=== PATIENT | female | born 1970 | race Hispanic/Latino ===

== ENCOUNTER 2021-08-07 21:52 | Emergency (ER) | payer SELFPAY ==
--- NOTE | ~2021-08-07 | CT_ITS ---
EXAMINATION: CT brain wo con DATE: 08/08/2021 00:16 INDICATION: Headache. TECHNIQUE: Computed tomography (CT) of the head was performed without intravenous contrast. The mA wa s adjusted according to patient size. Iterative reconstruction technique was employed. The dose-lengt h product was 605.33 mGy-cm. COMPARISON: Head CT 05/12/2019 FINDINGS: There is no intracranial hemorrhage, acute infarction, or abnormal intracranial mass lesion . The ventricles are normal in size. The paranasal sinuses are clear. The orbits are normal. The mast oid air cells are normal. IMPRESSION: 1. Normal brain. Reviewed, dictated and finalized at location E. [facility] IMPRESSION: 1. Normal brain.
[2021-08-07 21:56] VITALS: BP 156/95; PULSE 73; RESP 18; TEMP 36.6; O2SAT 100
--- NOTE | 2021-08-07 23:41 | ED.HA ---
HPI - Headache General Chief Complaint: Headache Stated Complaint: headache Time Seen by Provider: 08/07/21 23:28 Source: patient Mode of arrival: ambulatory Limitations: no limitations History of Present Illness HPI Narrative: Patient is a 52-year-old female complaining of a headache, frontal, 8 out of 10, nonradiating, dull, started this morning. Patient states that she has a history of headaches and this is her typical headache. Patient denies any speech or visual disturbance, focal weakness or numbness, unsteady gait, dizziness, neck pain or stiffness, fever or chills. Related Data Home Medications Medication Instructions Recorded Confirmed lovastatin 20 mg PO DAILY 05/12/19 05/12/19 metformin 1,000 mg PO BID 05/12/19 05/12/19 paroxetine HCl [Paxil] 20 mg PO QAM 05/12/19 05/12/19 Allergies Allergy/AdvReac Type Severity Reaction Status Date / Time No Known Allergies Allergy Verified 08/08/21 00:40 Review of Systems Review of Systems: All systems reviewed & are unremarkable except as noted in HPI and below Constitutional: Constitutional: Denies body ache(s), Denies chills, Denies excessive sweating, Denies fatigue, Denies fever(s), Denies headache(s), Denies lethargy, Denies malaise, Denies weakness and Denies weight loss Eyes: Eyes: Denies blurry vision, Denies change in vision and Denies loss of vision ENT: Denies dizziness, Denies ear discharge, Denies headache(s), Denies lip swelling, Denies epistaxis, Denies nasal congestion, Denies neck pain, Denies throat swelling and Denies tongue swelling Cardiovascular: Cardiovascular: Denies chest pain, Denies chest pain at rest, Denies chest pain with activity, Denies diaphoresis, Denies rapid heart rate, Denies edema, Denies irregular heart rhythm, Denies lightheadedness, Denies palpitations, Denies dyspnea and Denies dyspnea on exertion Respiratory: Respiratory: Denies chest congestion, Denies cough, Denies hemoptysis, Denies dyspnea and Denies dyspnea on exertion Gastrointestinal: Gastrointestinal: Denies abdominal pain, Denies melena, Denies hematochezia, Denies diarrhea, Denies nausea, Denies vomiting and Denies hematemesis Musculoskeletal: Musculoskeletal: Denies abnormal gait, Denies deformity, Denies joint swelling, Denies limited range of motion, Denies neck pain and Denies numbness Neurologic: Denies Abnormal speech present, Denies abnormal gait, Denies confusion, Denies dizziness, Denies focal weakness, Denies loss of vision, Denies numbness, Denies Other visual disturbances, Denies Sensory deficit (Neuro) and Denies weakness Psychiatric: Psychiatric: Denies confusion, Denies depression, Denies auditory hallucinations, Denies homicidal ideation and Denies suicidal ideation Endocrine: Endocrine: Denies cold intolerance, Denies excessive sweating, Denies fatigue, Denies heat intolerance and Denies palpitations Hematologic/Lymphatic: Hematologic/Lymphatic: Denies easy bleeding and Denies easy bruising Allergic/Immunologic: Allergic/Immunologic: Denies lip swelling, Denies throat swelling and Denies tongue swelling PMFSH Past Medical History Medical History Depression Diabetes mellitus HLD (hyperlipidemia) Social History Social History Smoking status: Never smoker Exam Const: General: cooperative, healthy appearing, comfortable, no acute distress, well developed, alert and awake; No confusion Orientation/consciousness: oriented to person, oriented to place, oriented to time, patient oriented x3 and No confusion Limitations: no limitations HENMT: Head: normal to inspection, normocephalic and atraumatic Ears: hearing grossly normal bilaterally, TM normal on the right and TM normal on the left General nose exam: Normal external nose present, Normal nares present and No nasal discharge present Face and sinus: normal facial exam Mouth: Yes Normal
[2021-08-08] MEDS: SODIUM CHLORIDE 0.9% IV 1,000 ML 999 ML IV CONT (00:39)
[2021-08-08] MEDS: METOCLOPRAMIDE HCL INJ 10 MG/2 ML VIAL IV PUSH (00:39)
[2021-08-08] MEDS: KETOROLAC 30 MG/ML VIAL (*BKC) IV PUSH (00:39)
[2021-08-08] MEDS: diphenhydrAMINE HCl INJ 50 MG/ML VIAL 25 MG IV PUSH (00:40)
[2021-08-08 01:02] LABS: Glucose Point of Care 137 mg/dl (65-105)
[2021-08-08 02:03] VITALS: BP 142/88; PULSE 67; RESP 15; O2SAT 99
== END 2021-08-08 02:14 | disposition home or self-care (01) ==
PROVIDERS: Emergency Provider Emergency Medicine
DX: R51.9 Headache, unspecified (principal); F32.9 Major depressive disorder, single episode, unspecified; E11.9 Type 2 diabetes mellitus without complications; E78.5 Hyperlipidemia, unspecified; Z79.84 Long term (current) use of oral hypoglycemic drugs
CPT/HCPCS: 70450; 82948; 96361; 96374; 96375; 99284; J1200; J1885; J2765; J7030

== ENCOUNTER 2022-06-16 16:22 | Emergency (ER) | payer MEDICAID, SELFPAY ==
[2022-06-16 17:11] VITALS: BP 151/74; PULSE 68; RESP 18; TEMP 36.4; O2SAT 100
--- NOTE | 2022-06-16 17:27 | ED.SKABFB ---
HPI - Skin/Abscess/Foreign Bdy General Chief complaint: Skin/Abscess/Foreign Body Stated complaint: Left Arm Pain/ Insect Bite, Dizziness Time Seen by Provider: 06/16/22 17:27 Source: patient and family Mode of arrival: ambulatory Limitations: no limitations History of Present Illness HPI narrative: 52-year-old female presents with complaint of insect bite to right arm. Afebrile. Reports that she has felt fatigued and dizzy since waking up this morning. Thinks that she was bit by spider but did not see the bug. No other complaints today. All systems reviewed and negative except as noted above. Related Data Allergies Allergy/AdvReac Type Severity Reaction Status Date / Time No Known Allergies Allergy Verified 06/16/22 17:36 Review of Systems Review of Systems: CONSTITUTIONAL: Denies fever, chills, or sweats. EYES: Denies visual changes, redness, or discharge. ENT: Denies rhinorrhea, congestion, sore throat, or otalgia. CARDIOVASCULAR: Denies chest pain, palpitations, or edema. RESPIRATORY: Denies cough or dyspnea. GASTROINTESTINAL: Denies abdominal pain, nausea, vomiting, or diarrhea. GENITOURINARY: Denies dysuria or hematuria. SKIN: Denies rash or itching. Reports insect bite right arm. MUSCULOSKELETAL: Denies back pain, joint pain, or myalgia. NEUROLOGIC: Denies headache, numbness, or weakness. PSYCHIATRIC: Denies anxiety or depression. All other systems reviewed are negative, except as documented in HPI. [facility] Past Medical History Medical History Depression Diabetes mellitus HLD (hyperlipidemia) Social History Social History Smoking status: Never smoker Comments At time of signature, agree with nursing past medical, surgical, social and family history. There is no relevant family history pertinent to the presenting complaint. Exam Narrative: GENERAL: This is a well-nourished, well-developed patient, in no apparent distress. HEAD: normocephalic, atraumatic. EYES: PERRL. Sclera clear/white. Vision is grossly intact. EARS: External ears normal NOSE: External nose normal NECK: Neck supple, non-tender without lymphadenopathy, masses or thyromegaly. CARDIOVASCULAR: Regular rate and rhythm without murmurs, gallops, or rubs. RESPIRATORY: Clear to auscultation. Breath sounds equal bilaterally. No wheezes, rales, or rhonchi. SKIN: warm, Dry, intact with no suspicious lesions or rash, good texture and turgor. Two scabbed puncture wounds noted to distal aspect R upper arm. bruising surrounding punctures. no erythema or warmth. NEURO: awake, alert, and oriented to person, place and time. There were no obvious focal neurologic abnormalities. EXTREMITIES: No joint tenderness, effusion, or edema noted. Course Course Level of Care: Express Care Visit Vital Signs Vital signs: Vital Signs Temperature 36.4 C L 06/16/22 17:11 Pulse Rate 68 06/16/22 17:11 Respiratory Rate 18 06/16/22 17:11 Blood Pressure 151/74 H 06/16/22 17:11 Pulse Oximetry 100 06/16/22 17:11 Oxygen Delivery Room Air 06/16/22 17:11 Temperature 36.4 C L 06/16/22 17:11 Pulse Rate 68 06/16/22 17:11 Respiratory Rate 18 06/16/22 17:11 Blood Pressure 151/74 H 06/16/22 17:11 Pulse Oximetry 100 06/16/22 17:11 Oxygen Delivery Room Air 06/16/22 17:11 reviewed MDM - Skin/Abscess/Foreign Bdy MDM Narrative Medical decision making narrative: Patient is aware of diagnosis, understands and agrees to treatment plan. Anticipatory guidance given. Patient agrees to follow-up as directed and is aware of reasons to seek care at the emergency department. Portions of this record may have been created with voice recognition software Discharge Plan Discharge Clinical Impression: Insect bite of arm, right Patient Disposition: Home, Self-Care Condition: Stable Instructions: Antibiotic Form,
[2022-06-16] MEDS: TETANUS,DIPHTHERIA,AC PERTUSSIS ADULT (0.5 ML) BOOSTRIX IM (17:42)
== END 2022-06-16 17:58 | disposition home or self-care (01) ==
PROVIDERS: Emergency Provider Nurse Practitioner Family; PCP Physician Assistant
DX: S40.861A Insect bite (nonvenomous) of right upper arm, initial encounter (principal); W57.XXXA Bitten or stung by nonvenomous insect and other nonvenomous arthropods, initial encounter; Z23 Encounter for immunization; E11.9 Type 2 diabetes mellitus without complications; E78.5 Hyperlipidemia, unspecified
CPT/HCPCS: 90471; 90715; 99212; G0463

== ENCOUNTER 2023-02-24 12:31 | Emergency (ER) | payer MEDICAID, SELFPAY ==
[2023-02-24 12:47] VITALS: BP 132/78; PULSE 79; RESP 20; TEMP 37.3; O2SAT 98
[2023-02-24 12:54] VITALS: BP 132/78; PULSE 79; RESP 20; TEMP 37.3; O2SAT 98
--- NOTE | 2023-02-24 13:06 | ED.SKABFB ---
HPI - Skin/Abscess/Foreign Bdy General Chief complaint: Skin/Abscess/Foreign Body Stated complaint: rash Time Seen by Provider: 02/24/23 12:54 Source: patient, family (daughter) and RN notes reviewed Mode of arrival: ambulatory Limitations: no limitations History of Present Illness HPI narrative: Patient presents today complaining of 4 day history of severe rash to her neck, chest, face, bilateral arms. Rash itches. She is unsure of the cause. Denies any new household products, new foods, new medications, new plantar animal contacts. No other family members in the home have a similar rash. She has been using Benadryl an [id number] cream without relief. Associated symptoms include facial swelling. Denies shortness of breath or difficulty swallowing. History of diabetes. States blood sugars are under control. Related Data Home Medications Medication Instructions Recorded Confirmed Metformin 02/24/23 Unknown Dep. Med. 02/24/23 Unknown Fungal Med. For Foot 02/24/23 Allergies Allergy/AdvReac Type Severity Reaction Status Date / Time No Known Allergies Allergy Verified 02/24/23 12:35 Review of Systems Review of Systems: CONSTITUTIONAL: Denies body aches, fever, chills, or sweats. EYES: Denies visual changes, redness, or discharge. ENT: Denies rhinorrhea, congestion, sore throat, or otalgia. CARDIOVASCULAR: Denies chest pain, palpitations, or edema. RESPIRATORY: Denies cough or dyspnea. GASTROINTESTINAL: Denies abdominal pain, nausea, vomiting, or diarrhea. GENITOURINARY: Denies dysuria or hematuria. SKIN: + pruritic rash with nasal swelling MUSCULOSKELETAL: Denies back pain, joint pain, or myalgia. NEUROLOGIC: Denies headache, numbness, tingling, or weakness. PSYCH: Denies depression or anxiety. [facility] Past Medical History Medical History Depression Diabetes mellitus HLD (hyperlipidemia) Social History Social History Smoking status: Never smoker Comments At time of signature, I have reviewed and agree with nursing past medical, surgical, social and family history unless otherwise noted. Please see nursing chart for further information. There is no relevant family history pertinent to the presenting complaint Exam Narrative: GENERAL: Well-appearing, well-nourished, and in no acute distress. HEAD: Normocephalic, atraumatic. Mild facial swelling noted. EYES: EOMI. No redness or drainage. Conjunctivae normal. ENT: Mucous membranes pink and moist. Tongue and lips are not swollen. Nares clear. No rhinorrhea. Throat normal. Uvula midline. NECK: Normal AROM. CHEST: No respiratory distress. Clear to auscultation. HEART: Regular rate and rhythm. No murmur appreciated. Normal peripheral pulses. EXTREMITIES: Normal range of motion. No edema. SKIN: Warm, dry. Capillary refill normal. Normal skin turgor. Severely erythematous color last tiny maculopapular rash to the chest, circumferentially around the neck, face, and patches to the bilateral antecubital fossa. NEURO: No focal deficits. Alert and oriented x3. Gait steady. PSYCH: Normal affect. No signs of depression or anxiety. Course Course Level of Care: Express Care Visit Vital Signs Vital signs: Vital Signs Temperature 99.1 F 02/24/23 12:47 Pulse Rate 79 02/24/23 12:47 Respiratory Rate 20 02/24/23 12:47 Blood Pressure 132/78 02/24/23 12:47 Pulse Oximetry 98 02/24/23 12:47 Oxygen Delivery Room Air 02/24/23 12:47 Temperature 99.1 F 02/24/23 12:54 Pulse Rate 79 02/24/23 12:54 Respiratory Rate 20 02/24/23 12:54 Blood Pressure 132/78 02/24/23 12:54 Pulse Oximetry 98 02/24/23 12:54 Oxygen Delivery Room Air 02/24/23 12:54 Reviewed. Pt has been instructed to follow up with her PCP regarding her elevated blood pressure today. MDM - Skin/Abscess/Foreign Bdy MDM
== END 2023-02-24 13:33 | disposition home or self-care (01) ==
PROVIDERS: Emergency Provider Nurse Practitioner; PCP Emergency Medicine
DX: L25.9 Unspecified contact dermatitis, unspecified cause (principal); E11.9 Type 2 diabetes mellitus without complications; E78.5 Hyperlipidemia, unspecified
CPT/HCPCS: 96372; 99213; G0463; J1100